=== PATIENT | female | born 1990 | race Caucasian/White ===

== ENCOUNTER 2016-09-23 07:00 | Inpatient (IN) | payer OTHER ==
[2016-09-23] VITALS (10 sets, daily range): BP systolic 119–139; BP diastolic 65–80
[~2016-09-23] VITALS: Ht 154.9 cm; Wt 95.0 kg
[~2016-09-23 07:00] MED LIST: DOCU10CA PO; FERR325T3 PO; IBUP80TA PO; PERCOCET PO; VITAPRTA PO
[2016-09-23] MEDS ORDERED: BICITRA 30ML SOLN UDC PO SCH (07:01)
[2016-09-23] MEDS ORDERED: LACTATED RINGER'S 1000 ML IV STA (07:42)
[2016-09-23] MEDS ORDERED: LR 1,000 ML IV SCH ×4 (07:42→10:45)
[2016-09-23] MEDS ORDERED: BICITRA 30ML SOLN UDC PO ONE (07:45)
[2016-09-23] MEDS ORDERED: LR 800 ML IV SCH (07:45)
[2016-09-23 08:01] LABS: MEAN CORPUSCULAR HEMOGLOBIN 28.3 pg (27.0-33.0); MEAN CORPUSCULAR HGB CONC 34.8 g/dl (32.0-36.5); MEAN CORPUSCULAR VOLUME 81.3 fl (80.0-96.0); RED CELL DISTRIBUTION WIDTH 15.3 % (11.5-14.5); WHITE BLOOD COUNT 7.3 K/mm3 (4.0-10.0)
[2016-09-23] MEDS ORDERED: MORPHINE PRES-FREE INJ 10 MG/10 ML VIAL (J2274) As Ordered ONE (08:35)
[2016-09-23] MEDS ORDERED: OXYTOCIN INJ 10 UNITS/ML VIAL (J2590) As Ordered ONE (08:39)
--- NOTE | 2016-09-23 08:49 | HPE ---
DATE OF ADMISSION: 09/23/2016 Rosanna is a 26-year-old female, 3, para 2-0-0-2 with a history of two prior sections and an EDC of 09/29/2016. She is being admitted for an elective repeat section and bilateral tubal ligation. Her records reviewed which are essentially unremarkable. labs: Blood type is O positive. Rubella immune. Hepatitis negative. HIV negative. GC/chlamydia negative. 1 hour sugar testing was within normal limit. Her Group B Streptococcus (GBS) is negative. PAST SURGICAL HISTORY: section times two. Gallbladder surgery in 2010. SOCIAL HISTORY: Patient is single. She works in customer service. She denies any alcohol, drugs or cigarette smoking. REVIEW OF SYSTEMS: Unremarkable. FAMILY HISTORY: Significant for diabetes, high blood pressure and high cholesterol. MEDICATIONS: - vitamin - Slow Fe ALLERGIES: No known drug allergies. PHYSICAL EXAMINATION ON ADMISSION: Obese female, no acute distress. Abdomen, soft, nontender, nondistended. Extremities: No clubbing, cyanosis or edema. Vaginal exam: Deferred. Tracing reviewed. Category 1 tracing. ASSESSMENT: 1. Intrauterine at 39-1/7 weeks of gestation being admitted for an elected repeat section. 2. Multiparity, desires permanent tubal sterilization. PLAN: Admit to labor and delivery. Routine labs sent. Awaiting OR for repeat section and bilateral tubal ligation.
[2016-09-23] MEDS ORDERED: METOCLOPRAMIDE INJ 10MG/2ML VIAL (J2765) IV PRN ×2 (09:00→10:45)
[2016-09-23] MEDS: PRENATAL VITAMIN TAB PO SCH (09:00)
[2016-09-23] MEDS ORDERED: NALOXONE INJ 0.4 MG/1 ML VIAL (J2310) IV PRN ×2 (09:00)
[2016-09-23] MEDS ORDERED: NALBUPHINE HCL 10 MG/ML AMP (J2300) IV PRN (09:00)
[2016-09-23] MEDS: DOCUSATE SODIUM 100 MG CAP PO SCH ×2 (09:00→20:11)
[2016-09-23] MEDS ORDERED: ONDANSETRON 4MG/2ML VIAL (J2405) IV PRN ×3 (09:00→10:45)
[2016-09-23] MEDS ORDERED: ONDANSETRON 4MG/2ML VIAL (J2405) As Ordered ONE (09:32)
[2016-09-23] MEDS ORDERED: PHENYLephrine HCL 500 MCG/5 ML (100MCG/ML) SYRINGE (J2370) As Ordered ONE (09:32)
[2016-09-23 09:33] LABS: CORD GAS ABE A -4.1; CORD GAS HCO3 A 24.9 MEQ/L; CORD GAS O2 SAT A 16.3 %; CORD GAS PCO2 A 61.2 mmHg; CORD GAS PH A 7.228 UNITS; CORD GAS TCO2 A 26.8 MEQ/L
[2016-09-23] MEDS ORDERED: KETOROLAC 60 MG/2 ML VIAL (J1885) As Ordered ONE (09:33)
[2016-09-23 09:35] LABS: CORD GAS ABE V -5.3; CORD GAS HCO3 V 20.9 MEQ/L; CORD GAS O2 SAT V 67.9 %; CORD GAS PH V 7.305 UNITS; CORD GAS SBC V 19.4 MEQ/L; CORD GAS TCO2 V 22.2 MEQ/L
[2016-09-23] MEDS ORDERED: METHYLERGONOVINE MALEATE 0.2 MG TAB PO PRN (10:00)
[2016-09-23] MEDS ORDERED: MEASLES,MUMPS,RUBELLA VACCINE INJ (MMR-II) (90707) SC SCH (10:00)
[2016-09-23] MEDS ORDERED: RHOGAM 300 MCG (1500 IU) INJ (J2790) IM SCH (10:00)
[2016-09-23] MEDS ORDERED: NORCO, ANEXSIA 5/325MG TABLET (HYDROcodone/ACETAMINOPHEN) PO PRN (10:00)
[2016-09-23] MEDS ORDERED: MOM 30ML SUSPENSION UDC PO PRN (10:00)
[2016-09-23] MEDS ORDERED: fentaNYL 100 MCG/2 ML INJECTION (J3010) As Ordered ONE (10:28)
[2016-09-23] MEDS ORDERED: fentaNYL 100 MCG/2 ML INJECTION (J3010) IV PRN (10:45)
[2016-09-23] MEDS ORDERED: PERCOCET 5MG/325MG TAB PO PRN (10:45)
[2016-09-23] MEDS ORDERED: MEPERIDINE INJ 25 MG/ML VIAL (J2175) IV PRN (10:45)
[2016-09-23] MEDS ORDERED: PROMETHAZINE INJ 25 MG/ML VIAL (J2550) IV PRN (15:00)
[2016-09-23] MEDS ORDERED: PROMETHAZINE INJ 25 MG/ML VIAL (J2550) IV ONE (15:00)
[2016-09-23] MEDS: NORCO, ANEXSIA 5/325MG TABLET (HYDROcodone/ACETAMINOPHEN) PO PRN (21:53)
[2016-09-24 02:00] VITALS: BP 116/62
[2016-09-24 05:09] VITALS: BP 136/90
[2016-09-24 07:45] LABS: MEAN CORPUSCULAR HEMOGLOBIN 26.8 pg (27.0-33.0); MEAN CORPUSCULAR HGB CONC 33.2 g/dl (32.0-36.5); MEAN CORPUSCULAR VOLUME 80.8 fl (80.0-96.0); RED CELL DISTRIBUTION WIDTH 16.3 % (11.5-14.5); WHITE BLOOD COUNT 10.6 K/mm3 (4.0-10.0)
[2016-09-24] MEDS: DOCUSATE SODIUM 100 MG CAP PO SCH ×2 (09:19→21:53)
[2016-09-24] MEDS: PRENATAL VITAMIN TAB PO SCH (09:20)
[2016-09-24] MEDS: NORCO, ANEXSIA 5/325MG TABLET (HYDROcodone/ACETAMINOPHEN) PO PRN ×2 (09:20→18:19)
[2016-09-24 10:12] VITALS: BP 118/69
--- NOTE | 2016-09-24 11:11 | RO ---
DATE OF PROCEDURE: 09/23/2016 PREOPERATIVE DIAGNOSES: 1. Term for elective repeat section times three. 2. Multiparity, desires permanent tubal sterilization. POSTOPERATIVE DIAGNOSES: 1. Term for elective repeat section times three. 2. Multiparity, desires permanent tubal sterilization. 3. Dense pelvic adhesions. PROCEDURE: 1. Repeat section. 2. Bilateral tubal ligation using Filshie clip 3. Lysis of adhesions. SURGEON: Dr. Patricio Ross VENDING TECHNICIAN: Dr. Barnes ANESTHESIA: COMPLICATIONS: None. ESTIMATED BLOOD LOSS: 700 mL. FINDINGS: Live male infant in occiput transverse position with a nuchal cord times 2. 8 and 9. weight 8 pounds 5 ounces. Placenta delivered manually intact, three-vessel cord. Dense uterine, omental and bladder adhesions noted. Rosanna is a 26-year-old female, 3, para 2-0-0-2, with a history of two prior sections who is being admitted for elective repeat section. Also, the patient desires permanent tubal sterilization. PROCEDURE: After obtaining informed consent, the patient was taken to the operating room where spinal anesthetic was found to be adequate. She was then draped and prepped in usual sterile fashion in the supine position. At this point, elliptical incision was made over her old scar. This was carried down to the fascia. Fascia was incised in midline fashion and carried through laterally. Superior aspect of the fascia grasped with Radha clamps, tented off and dissected off the rectus muscles sharply. The inferior aspect was dissected off in a similar fashion. Rectus muscles were midline fashion. Peritoneal cavity identified and entered bluntly. Upon entering the peritoneal cavity, dense uterine, omental and bladder adhesions were noted. Careful dissection was done using the Metzenbaum and the Bovie to take down those adhesions. After removing the adhesions, we were then able to place a Mobius skin retractor. A low-transverse uterine incision was then made. Infant was delivered in atraumatic fashion. The nuchal cords were reduced. Cord doubly clamped and cut and was handed over to the awaiting warmer. Cord blood and cord gas were sent. Placenta removed manually. Uterus cleared of all clot and debris. The uterine incision was then repaired in two separate layers of #0 Vicryl suture. We then turned our attention to the fallopian tube where the fimbriated ends were identified. There were some filmy adhesions over the area of the fallopian tubes and ovaries. These were also taken down using the Metzenbaum. We were then able to identify the fimbriated end on both tubes and a Filshie clip was applied approximately 2-3 cm away from the cornual area in each tube. Good hemostasis noted. Pelvis copiously irrigated with normal saline and suctioned out. The peritoneum was identified and peritoneal cavity was closed in a running fashion using #2-0 Vicryl. Fascia reapproximated in two separate segments of #0 Vicryl sutures. The skin was then reapproximated in subcuticular fashion using #3-0 Vicryl on a Elie. The patient tolerated procedure well. She was then transferred to recovery room in stable condition.
--- NOTE | 2016-09-24 12:05 | IPNPDOC ---
Date of Service/Time 09/24/16 at 1115 hours Progress Note SUBJECTIVE: Patient reports she is doing well. She has been out of bed walking without difficulty. She's been voiding without difficulty. She has been managing her pain with [place] and Motrin. OBJECTIVE: PHYSICAL EXAMINATION: VITAL SIGNS: Please see below. ABDOMINAL: The incision dressing was removed. The incision is approximated with no drainage. Steri-Strips are in place. ASSESSMENT: Day 1 postop from with tubal ligation. PLAN: Continue supportive nursing care with pain management. Anticipate discharge for tomorrow. VS, I&O, 24H, Fishbone VS, I&O, 24H, Fishbone Vital Signs Date Time Temp Pulse Resp B/P Pulse Ox O2 Delivery O2 Flow Rate FiO2 09/24/16 10:12 96.7 89 18 118/69 99 09/24/16 05:09 Room Air I&O- Last 24 Hours up to 6 AM 09/24/16 06:00 Intake Total 1660 ml Output Total 2925 ml Balance -1265 ml Laboratory Tests 09/24/16 07:00 Red Blood Count 3.29 L, Mean Corpuscular Volume 80.8, Mean Corpuscular Hemoglobin 26.8 L, Mean Corpuscular Hemoglobin Concent 33.2, Red Cell Distribution Width 16.3 H BAUTISTA CYR CNM Sep 24, 2016 12:05
[2016-09-24] MEDS: IBUPROFEN 800 MG TAB PO SCH ×2 (12:22→20:00)
[2016-09-24 14:30] VITALS: BP 123/64
[2016-09-24 18:24] VITALS: BP 145/87
[2016-09-24 21:11] VITALS: BP 138/80
[2016-09-24 23:12] LABS: BASO % 0.2 % (0.0-1.0); EOS # 0.1 K/mm3 (0.0-0.50); EOS % 1.2 % (0.0-3.0); LARGE UNSTAINED CELL # 0.1 K/mm3 (0.0-0.4); LARGE UNSTAINED CELL % 1.5 % (0.0-4.0); LYMPH # 0.8 K/mm3 (1.5-6.5); MEAN CORPUSCULAR HEMOGLOBIN 27.2 pg (27.0-33.0); MEAN CORPUSCULAR HGB CONC 32.9 g/dl (32.0-36.5); MEAN CORPUSCULAR VOLUME 82.6 fl (80.0-96.0); MONO # 0.4 K/mm3 (0.0-0.8); MONO % 5.4 % (0.0-5.0); NEUTROPHILS # 5.8 K/mm3 (1.8-7.7); NEUTROPHILS % 80.8 % (36.0-66.0); PLATELET COUNT, AUTOMATED 180 k/mm3 (150-450); RED CELL DISTRIBUTION WIDTH 15.1 % (11.5-14.5); WHITE BLOOD COUNT 7.1 K/mm3 (4.0-10.0)
[2016-09-25] MEDS: IBUPROFEN 800 MG TAB PO SCH ×3 (05:24→20:27)
[2016-09-25 06:09] VITALS: BP 111/77
[2016-09-25] MEDS ORDERED: ADACEL/BOOSTRIX VACCINE (DIPHTH/PERTUSS/ACELL/TETANUS)0.5ML SYR (90715) IM ONE (09:00)
[2016-09-25] MEDS: DOCUSATE SODIUM 100 MG CAP PO SCH ×2 (09:16→20:27)
[2016-09-25] MEDS: PRENATAL VITAMIN TAB PO SCH (09:16)
[2016-09-25] MEDS: NORCO, ANEXSIA 5/325MG TABLET (HYDROcodone/ACETAMINOPHEN) PO PRN (09:25)
[2016-09-25 18:21] VITALS: BP 122/80
[2016-09-25] MEDS: AMPICILLIN SOD/SULBACTAM SOD 3 GM in D5W MINI-BAG PLUS 100 ML IV SCH (21:00)
[2016-09-26] MEDS: AMPICILLIN SOD/SULBACTAM SOD 3 GM in D5W MINI-BAG PLUS 100 ML IV SCH ×2 (03:13→08:46)
[2016-09-26] MEDS: IBUPROFEN 800 MG TAB PO SCH ×2 (03:14→11:57)
[2016-09-26 06:17] VITALS: BP 142/70
[2016-09-26] MEDS: DOCUSATE SODIUM 100 MG CAP PO SCH (08:46)
[2016-09-26] MEDS: PRENATAL VITAMIN TAB PO SCH (08:46)
--- NOTE | 2016-09-26 09:45 | DS.PDOC ---
Discharge Summary General Date of Admission Sep 23, 2016 at 07:00 Date of Discharge 09/26/16 Attending Physician: Patricio Ross DO Discharge Summary PROCEDURES PERFORMED DURING STAY: Repeat section with tubal ligation. COMPLICATIONS/CHIEF COMPLAINT: Previous C Section Request Perm Sterilization ADMISSION DIAGNOSES: 1. . Intrauterine at 39 weeks 1 day 2. Repeat section]. 3. Desires permanent sterilization. DISCHARGE DIAGNOSES: 1. Repeat section with tubal ligation. 2. Suprapubic hematoma. HISTORY OF PRESENT ILLNESS: Patient is a 26-year-old female who is now a . She has no significant medical history. She has had 2 prior sections one in 199906/14/2015 and she has also had a cholecystectomy in 2010. Family history is significant for diabetes, hypercholesterolemia, hypertension and lung cancer. She is not a smoker. She denies drug or alcohol use. HOSPITAL COURSE: Patient was admitted for for repeat section with a tubal ligation. Patient's course has been complicated by a fever and a suprapubic hematoma that presented on the night of day 2 post op. Her CBC has been stable. Her blood cultures have been negative. Still awaiting urine culture. Patient was started on Unasyn 3 g every 6 hours via IV for fever. She has completed 3 doses and will be sent home on Keflex. DISCHARGE MEDICATIONS: A prescription was sent to patient's pharmacy for Keflex 500 mg to be taken by mouth every 6 hours for 7 days and patient has also been given Percocet 5/325 mg to be taken as needed every 4 hours for pain. Only 20 tabs were written for. Patient can continue taking Motrin and Tylenol as needed for pain. ALLERGIES: Please see below. PHYSICAL EXAMINATION ON DISCHARGE: VITAL SIGNS: Please see below. CARDIOVASCULAR EXAMINATION: Heart rate is regular. Rhythm is regular. RESPIRATORY EXAMINATION: Lungs clear bilaterally. ABDOMINAL EXAMINATION: Fundus is firm at umbilicus. Lochia is scant light red. Low-transverse abdominal incision is approximated. Steri-Strips are in place. No discharge noted from the incision. It is noted that there is a suprapubic hematoma that appeared last night. The size measures about 2" x 4". The surface of the hematoma appears red. The area has been marked decrease with a marker to indicate if the area as described. EXTREMITIES: 1+ pitting edema noted bilateral lower leg and the feet. LABORATORY DATA: Please see below. DISCHARGE CONDITION: Stable. No fever for 12 hours. ACTIVITY: As tolerated. No heavy lifting-no more than 15 pounds. DIET: Regular DISCHARGE PLAN AND INSTRUCTIONS: 1. Continue to monitor suprapubic hematoma. If the hematoma starts described patient is to call the office. Education done on signs and symptoms of infection at the incisional site. Education done of breast care, pelvic rest, no heavy lifting, signs of infection, signs of a DVT, signs of pulmonary embolism, and hemorrhaging. Education done and pain management. Patient aware that she has Keflex and Percocet available at her pharmacy and education done on when and how to take medication. Patient is to call if her fever gets above 101F. She is to follow-up in 2 weeks in the office for an incision check and 6 weeks for visit. Vital Signs/I&Os Vital Signs Date Time Temp Pulse Resp B/P Pulse Ox O2 Delivery O2 Flow Rate FiO2 09/26/16 06:17 97.3 106 18 142/70 09/24/16 14:30 98 09/24/16 05:09 Room Air Microbiology Microbiology 09/24/16 Blood Culture - Preliminary, Resulted No growth after 24 hours . All specim... 09/25/16 Urine Culture, Received Pending Medications No Active Prescriptions or Reported Meds Allergies Coded Allergies: No Known Drug Allergy (Verified Allergy, Unknown, 09/16/16) BAUTISTA CYR CNM Sep 26, 2016 09:45
[2016-09-26] MEDS ORDERED: OXYC1TAB23 PO (09:56)
[2016-09-26] MEDS ORDERED: PRENTAB9 PO (09:56)
[2016-09-26] MEDS ORDERED: IBUP-1114 PO (09:56)
[2016-09-26] MEDS ORDERED: KEFL500C7 PO (09:58)
== END 2016-09-26 12:15 | disposition home or self-care (01) | DRG 540 ==
LOC: M LDI 07:00 → M OBS 11:21
PROVIDERS: ADMIT Obstetrics & Gynecology; ATTEND Obstetrics & Gynecology
PROC: 0UL70DZ Occlusion of Bilateral Fallopian Tubes with Intraluminal Device, Open Approach (ICD-10-PCS; 2016-09-23)
PROC: 10D00Z1 Extraction of Products of Conception, Low, Open Approach (ICD-10-PCS; principal; 2016-09-23 08:30)
DX: O34.211 Maternal care for low transverse scar from previous cesarean delivery (principal); O86.4 Pyrexia of unknown origin following delivery; O99.214 Obesity complicating childbirth; E66.9 Obesity, unspecified; Z68.41 Body mass index [BMI] 40.0-44.9, adult; Z3A.39 39 weeks gestation of pregnancy; O90.2 Hematoma of obstetric wound; Z30.2 Encounter for sterilization; Z37.0 Single live birth

== ENCOUNTER 2017-02-08 01:15 | Emergency (ER) | payer OTHER ==
[~2017-02-08] VITALS: Ht 154.9 cm; Wt 81.6 kg
[~2017-02-08 01:15] MED LIST changes: +IBUP-1114 PO; +KEFL500C7 PO; +OXYC1TAB23 PO; +PRENTAB9 PO
[2017-02-08] MEDS ORDERED: traMADol 50 MG TAB PO ONE (03:00)
[2017-02-08 03:44] VITALS: BP 110/66
--- NOTE | 2017-02-08 08:17 | REP ---
Clinical: Trauma. Technique: AP, lateral, bilateral oblique views of the left foot. Findings: There is a nondisplaced closed fracture involving the fifth toe proximal phalanx with overlying soft tissue swelling. No subcutaneous emphysema or radiodense foreign body. The remainder of the examination appears normal. Impression: Closed nondisplaced fracture involving the fifth toe proximal phalanx. Signed by Eladio Cornejo MD 02/08/2017 08:08 A
== END 2017-02-08 04:36 | disposition home or self-care (01) ==
LOC: M ED 04:10
DX: S92.515A Nondisplaced fracture of proximal phalanx of left lesser toe(s), initial encounter for closed fracture (principal); W22.8XXA Striking against or struck by other objects, initial encounter; Y92.019 Unspecified place in single-family (private) house as the place of occurrence of the external cause; Y93.02 Activity, running; Y99.9 Unspecified external cause status

== ENCOUNTER 2019-01-05 13:31 | Emergency (ER) | payer MEDICAID, OTHER, SELFPAY ==
[~2019-01-05] VITALS: Ht 154.9 cm; Wt 90.9 kg
[~2019-01-05 13:31] MED LIST changes: +KEFL500C17 PO; -KEFL500C7 PO
[2019-01-05 13:32] VITALS: BP 132/60
--- NOTE | 2019-01-05 15:12 | REP ---
LEFT 4TH TOE SERIES: FOUR VIEWS. HISTORY: Injury. Comparison left foot radiographs are from February 08, 2017. FINDINGS: There is a transverse fracture through the diaphysis of the proximal phalanx of the 4th toe with mild apex medial angulation and associated soft-tissue swelling. The previously noted left 5th proximal phalangeal fracture has healed. IMPRESSION: Fracture proximal phalanx left 4th toe with slight apex medial angulation. Electronically Signed by Todd Walker MD 01/05/2019 04:04 P
== END 2019-01-05 14:21 | disposition home or self-care (01) ==
LOC: M ED 13:31
DX: S92.512A Displaced fracture of proximal phalanx of left lesser toe(s), initial encounter for closed fracture (principal); W22.8XXA Striking against or struck by other objects, initial encounter; Y92.099 Unspecified place in other non-institutional residence as the place of occurrence of the external cause; Y93.9 Activity, unspecified; Y99.9 Unspecified external cause status

== ENCOUNTER → 2021-05-31 | Outpatient (CLI) | payer OTHER | LOC: M LABSMTC 11:31 | PROVIDERS: ATTEND Pediatrics | DX: Z20.822 Contact with and (suspected) exposure to COVID-19 (principal) ==

== ENCOUNTER → 2022-05-13 | Outpatient (CLI) | payer OTHER | LOC: M WHC 07:09 | PROVIDERS: ATTEND Physician Assistant Medical | DX: N93.9 Abnormal uterine and vaginal bleeding, unspecified (principal) ==

== ENCOUNTER 2022-07-24 23:19 | Emergency (ER) | payer OTHER ==
[~2022-07-24] VITALS: Ht 154.9 cm; Wt 99.0 kg
[2022-07-25 03:32] LABS: BASO % 0.4 % (0.0-1.0); EOS # 0.1 10^3/uL (0.0-0.5); EOS % 1.2 % (0.0-3.0); HEMATOCRIT 38.7 % (36.0-47.0); HEMOGLOBIN 12.7 g/dl (12.0-15.5); LYMPH # 2.3 10^3/uL (1.5-5.0); LYMPH % 30.6 % (24.0-44.0); MEAN CORPUSCULAR HEMOGLOBIN 29.7 pg (27.0-33.0); MEAN CORPUSCULAR HGB CONC 32.8 g/dl (32.0-36.5); MEAN CORPUSCULAR VOLUME 90.6 fl (80.0-96.0); MONO # 0.6 10^3/uL (0.0-0.8); MONO % 7.8 % (2.0-8.0); NEUTROPHILS # 4.4 10^3/uL (1.5-8.5); NEUTROPHILS % 59.7 % (36.0-66.0); PLATELET COUNT, AUTOMATED 247 10^3/uL (150-450); RED BLOOD COUNT 4.27 10^6/uL (4.00-5.40); WHITE BLOOD COUNT 7.4 10^3/uL (4.0-10.0)
[2022-07-25] MEDS ORDERED: ISOVUE-370 76% 100ML VIAL As Ordered ONE (03:49)
[2022-07-25] MEDS ORDERED: KETOROLAC 30 MG/ML 1ML VIAL IV ONE (03:50)
[2022-07-25 04:09] LABS: ALBUMIN 3.7 GM/DL (3.2-5.2); ALT/SGPT 45 U/L (12-78); BILIRUBIN,DIRECT 0.2 MG/DL (0.0-0.2); BILIRUBIN,TOTAL 0.6 MG/DL (0.2-1.0); BLOOD UREA NITROGEN 9 MG/DL (7-18); CALCIUM LEVEL 8.9 MG/DL (8.5-10.1); CARBON DIOXIDE LEVEL 25 MEQ/L (21-32); CHLORIDE LEVEL 108 MEQ/L (98-107); CREATININE FOR GFR 0.77 MG/DL (0.55-1.30); GLOMERULAR FILTRATION RATE > 60.0 (>60); GLUCOSE, FASTING 105 MG/DL (70-100); LIPASE 92 U/L (73-393); SODIUM LEVEL 137 MEQ/L (136-145); TOTAL PROTEIN 7.4 GM/DL (6.4-8.2)
[2022-07-25 04:11] LABS: CK-MB VALUE MASS < 1.0 NG/ML (<3.6); CPK CREATINE PHOSPHOKINASE 57 U/L (26-192); MB/CK RELATIVE INDEX 1.75 (< OR =4)
[2022-07-25 05:15] VITALS: BP 115/73
[2022-07-25] MEDS ORDERED: SUCRALFATE 1 GM TAB PO ONE (06:05)
[2022-07-25] MEDS ORDERED: OMEPRAZOLE 20MG CAP PO ONE (06:05)
[2022-07-25] MEDS ORDERED: FAMOTIDINE 20 MG TAB PO ONE (06:05)
[2022-07-25] MEDS ORDERED: CARA1TAB6 PO (06:06)
[2022-07-25] MEDS ORDERED: PEPC1TAB5 PO (06:06)
[2022-07-25] MEDS ORDERED: OMEP40CA4 PO (06:06)
== END 2022-07-25 06:39 | disposition home or self-care (01) ==
LOC: M ED 23:19
DX: K44.9 Diaphragmatic hernia without obstruction or gangrene (principal); F12.10 Cannabis abuse, uncomplicated; Z79.810 Long term (current) use of selective estrogen receptor modulators (SERMs); Z79.83 Long term (current) use of bisphosphonates; Z79.899 Other long term (current) drug therapy
CPT/HCPCS: 71275; 74177; 80048; 80076; 82550; 82553; 83605; 83690; 84702; 85025; 93005; 93041; 96374; 99285; J1885